=== PATIENT | male | born 1965 | race Caucasian/White ===

== ENCOUNTER 2017-09-27 16:57 | Inpatient (IN) | payer BC ==
[~2017-09-27] VITALS: Ht 170.2 cm; Wt 74.8 kg
[2017-09-27] MEDS ORDERED: [UNRECOGNIZED DRUG - CODE] PO (17:14)
[2017-09-27] MEDS ORDERED: AMLO10TA80 PO (17:14)
[2017-09-27] MEDS ORDERED: ASPI-864 PO (17:14)
[2017-09-27] MEDS ORDERED: CHOL20004 PO (17:14)
[2017-09-27] MEDS ORDERED: DORZ10DR9 OP (17:14)
[2017-09-27] MEDS ORDERED: FURO40TA5 PO (17:14)
[2017-09-27] MEDS ORDERED: BRIM15DR2 EACHEYE (17:14)
[2017-09-27] MEDS ORDERED: GABA-531 PO (17:14)
[2017-09-27 21:09] LABS: BASOPHILS % 0.6 % (0.0-2.0); EOSINOPHILS % 3.2 % (0.0-5.0); LYMPHOCYTES % 15.1 % (20.0-50.0); MEAN CORPUSCULAR HEMOGLOBIN 31.3 pg (28.0-32.0); MEAN CORPUSCULAR VOLUME 93.3 fL (80.0-94.0); MEAN PLATELET VOLUME 10.8 fl (7.4-10.4); MONOCYTES % 12.1 % (2.0-8.0); PLATELET 324 x1000/uL (130-400); RED BLOOD CELL COUNT 2.02 mill/uL (4.7-6.1); RED CELL DISTRIBUTION WIDTH 14.2 % (11.6-14.6)
[2017-09-27 21:11] LABS: INR 1.1; PROTHROMBIN TIME 11.8 sec (9.4-11.6)
[2017-09-27 21:15] LABS: HEMATOCRIT. 18.9 % (42.0-52.0); HEMOGLOBIN. 6.3 g/dL (14.0-18.0)
[2017-09-27 21:23] LABS: CARBON DIOXIDE 17 mEq/L (21-32); CHLORIDE 113 mEq/L (98-107); CREATINE KINASE 571 IU/L (39-308); ETHANOL BLOOD < 10 mg/dL; TROPONIN I 0.02 ng/mL (0.00-0.04)
[2017-09-27 21:53] LABS: CLARITY URINE CLEAR (CLEAR); COLOR URINE YELLOW (YELLOW); KETONES URINE NEGATIVE (NEGATIVE); LEUKOCYTE ESTERASE URINE NEGATIVE (NEGATIVE); NITRITE URINE NEGATIVE (NEGATIVE); OCCULT BLOOD URINE 1+ (NEGATIVE); PH URINE 5.5 (4.5-8.0); PROTEIN URINE 3+ (NEGATIVE); SPECIFIC GRAVITY URINE 1.015 (1.005-1.030); UROBILINOGEN URINE 0.2 E.U./dL (0.2-1.0)
[2017-09-27] MEDS ORDERED: ASPIRIN 81MG TABLET PO ONE (22:00)
[2017-09-27 22:05] LABS: *AMPHETAMINES SCREEN URINE NEGATIVE (NEGATIVE); *BARBITURATES SCREEN URINE NEGATIVE (NEGATIVE); *BENZODIAZEPINES SCREEN URINE NEGATIVE (NEGATIVE); *COCAINE SCREEN URINE NEGATIVE (NEGATIVE); CANNABINOID URINE SCREEN NEGATIVE (NEGATIVE); METHADONE URINE SCREEN NEGATIVE (NEGATIVE); OPIATES URINE SCREEN NEGATIVE (NEGATIVE); PHENCYCLIDINE URINE SCREEN NEGATIVE (NEGATIVE)
[2017-09-27] MEDS ORDERED: CLONIDINE 0.2MG TABLET PO ONE (22:30)
[2017-09-28] VITALS (19 sets, daily range): BP systolic 122–169; BP diastolic 68–93
[2017-09-28] MEDS ORDERED: ONDANSETRON HCL 4MG/2ML VIAL IV PRN (02:00)
[2017-09-28] MEDS ORDERED: DEXTROSE 50% WATER 50ML SYRINGE IV PRN (02:00)
[2017-09-28] MEDS ORDERED: IPRATROPIUM/ALBUTEROL 0.5-3(2.5)MG/3ML NEB INH PRN (02:00)
[2017-09-28] MEDS ORDERED: DIPHENHYDRAMINE 50MG/ML VIAL IV PRN (02:00)
[2017-09-28] MEDS ORDERED: ACETAMINOPHEN 325MG TABLET PO PRN (02:00)
[2017-09-28] MEDS ORDERED: MAGNESIUM/ALUMINUM HYDROXIDE/SIMETHICONE 30ML UDC PO PRN (02:00)
[2017-09-28] MEDS: SODIUM CHLORIDE 0.9% 1,000 ML IV SCH (03:07)
[2017-09-28] MEDS: BLOOD SUGAR DIAGNOSTIC STRIP TEST SCH ×4 (06:19→21:00)
[2017-09-28] MEDS: GABAPENTIN 300MG CAPSULE PO SCH ×3 (06:19→21:57)
[2017-09-28] MEDS: BRIMONIDINE 0.2% OPHTH DROPS 5ML BOTHEYE SCH ×3 (06:19→21:58)
[2017-09-28] MEDS: INSULIN LISPRO 100 UNITS/ML SUBCUT SCH ×4 (07:50→23:16)
[2017-09-28] MEDS: AMLODIPINE 10MG TABLET PO SCH (08:42)
[2017-09-28] MEDS: TIMOLOL MALEATE 0.5% OPHTH DROPS 5ML EACHEYE SCH ×2 (08:43→21:58)
[2017-09-28] MEDS ORDERED: LIDOCAINE HCL 1% 20ML VIAL (Pyxis) INJ ONE (09:52)
[2017-09-28] MEDS ORDERED: SODIUM BICARBONATE 4% (2.4MEQ) 5ML VIAL IV ONE (09:52)
[2017-09-28] MEDS ORDERED: CEFAZOLIN 1000MG PREMIX 50 ML IV ONE ×2 (10:00→10:02)
[2017-09-28] MEDS: INSULIN GLARGINE UD 100 UNITS/ML SYR SUBCUT SCH (10:00)
[2017-09-28] MEDS ORDERED: FENTANYL CITRATE/PF 50MCG/ML 2ML VIAL ONE (10:03)
[2017-09-28] MEDS ORDERED: FENTANYL CITRATE/PF 50MCG/ML 2ML VIAL IV ONE (10:05)
[2017-09-28 17:09] LABS: HEPATITIS B SURFACE ANTIGEN NEGATIVE
[2017-09-28 17:37] LABS: HEPATITIS B CORE AB IGM NEGATIVE
[2017-09-28 17:39] LABS: HEPATITIS A AB IGM NEGATIVE (NEGATIVE)
[2017-09-28 20:16] LABS: BASOPHILS % 0.7 % (0.0-2.0); EOSINOPHILS % 2.8 % (0.0-5.0); HEMATOCRIT. 22.2 % (42.0-52.0); HEMOGLOBIN. 7.5 g/dL (14.0-18.0); LYMPHOCYTES % 13.4 % (20.0-50.0); MEAN CORPUSCULAR HEMOGLOBIN 30.3 pg (28.0-32.0); MEAN CORPUSCULAR VOLUME 89.5 fL (80.0-94.0); MEAN PLATELET VOLUME 10.5 fl (7.4-10.4); MONOCYTES % 12.9 % (2.0-8.0); NEUTROPHILS % 70.2 % (40.0-76.0); PLATELET 300 x1000/uL (130-400); RED BLOOD CELL COUNT 2.48 mill/uL (4.7-6.1); RED CELL DISTRIBUTION WIDTH 14.6 % (11.6-14.6)
[2017-09-29] VITALS: BP 164/77
[2017-09-29 04:00] VITALS: BP 158/80
[2017-09-29] MEDS: GABAPENTIN 300MG CAPSULE PO SCH ×3 (06:49→21:27)
[2017-09-29] MEDS: BRIMONIDINE 0.2% OPHTH DROPS 5ML BOTHEYE SCH ×3 (06:53→21:57)
[2017-09-29 07:49] LABS: BASOPHILS % 0.7 % (0.0-2.0); EOSINOPHILS % 2.8 % (0.0-5.0); LYMPHOCYTES % 18.3 % (20.0-50.0); MEAN CORPUSCULAR HEMOGLOBIN 31.2 pg (28.0-32.0); MEAN CORPUSCULAR VOLUME 89.9 fL (80.0-94.0); MEAN PLATELET VOLUME 10.8 fl (7.4-10.4); MONOCYTES % 14.3 % (2.0-8.0); NEUTROPHILS % 63.9 % (40.0-76.0); PLATELET 252 x1000/uL (130-400); RED BLOOD CELL COUNT 2.19 mill/uL (4.7-6.1); RED CELL DISTRIBUTION WIDTH 14.5 % (11.6-14.6)
[2017-09-29] MEDS: BLOOD SUGAR DIAGNOSTIC STRIP TEST SCH ×4 (07:50→21:48)
[2017-09-29 07:56] LABS: HEMOGLOBIN. 6.8 g/dL (14.0-18.0)
[2017-09-29 07:57] LABS: HEMATOCRIT. 19.7 % (42.0-52.0)
[2017-09-29 08:00] VITALS: BP 148/73
[2017-09-29 08:58] LABS: PHOSPHORUS 4.7 mg/dL (2.5-4.9)
[2017-09-29] MEDS: AMLODIPINE 10MG TABLET PO SCH (10:27)
[2017-09-29] MEDS: INSULIN GLARGINE UD 100 UNITS/ML SYR SUBCUT SCH (10:31)
[2017-09-29] MEDS: TIMOLOL MALEATE 0.5% OPHTH DROPS 5ML EACHEYE SCH ×2 (10:32→21:27)
[2017-09-29] MEDS: INSULIN LISPRO 100 UNITS/ML SUBCUT SCH ×4 (10:38→22:00)
[2017-09-29 12:00] VITALS: BP 145/68
[2017-09-29 12:37] LABS: BASOPHILS % 0.8 % (0.0-2.0); LYMPHOCYTES % 18.9 % (20.0-50.0); MEAN CORPUSCULAR HEMOGLOBIN 30.6 pg (28.0-32.0); MEAN CORPUSCULAR VOLUME 90.5 fL (80.0-94.0); MEAN PLATELET VOLUME 10.6 fl (7.4-10.4); MONOCYTES % 14.3 % (2.0-8.0); PLATELET 261 x1000/uL (130-400); RED BLOOD CELL COUNT 2.28 mill/uL (4.7-6.1); RED CELL DISTRIBUTION WIDTH 14.6 % (11.6-14.6)
[2017-09-29 12:43] LABS: HEMATOCRIT. 20.6 % (42.0-52.0)
[2017-09-29 16:00] VITALS: BP 138/66
[2017-09-29 20:00] VITALS: BP 138/70
[2017-09-30] VITALS (9 sets, daily range): BP systolic 131–196; BP diastolic 52–100
[2017-09-30] MEDS: SODIUM CHLORIDE 0.9% 1,000 ML IV SCH (01:29)
[2017-09-30] MEDS: GABAPENTIN 300MG CAPSULE PO SCH ×3 (06:46→21:43)
[2017-09-30] MEDS: BRIMONIDINE 0.2% OPHTH DROPS 5ML BOTHEYE SCH ×3 (06:47→21:43)
[2017-09-30] MEDS: BLOOD SUGAR DIAGNOSTIC STRIP TEST SCH ×4 (06:52→21:24)
[2017-09-30] MEDS: INSULIN LISPRO 100 UNITS/ML SUBCUT SCH ×4 (07:50→21:45)
[2017-09-30] MEDS: AMLODIPINE 10MG TABLET PO SCH ×2 (09:00→13:39)
[2017-09-30 09:08] LABS: BASOPHILS % 0.7 % (0.0-2.0); EOSINOPHILS % 4.9 % (0.0-5.0); LYMPHOCYTES % 22.9 % (20.0-50.0); MEAN CORPUSCULAR HEMOGLOBIN 30.4 pg (28.0-32.0); MEAN PLATELET VOLUME 10.7 fl (7.4-10.4); MONOCYTES % 13.3 % (2.0-8.0); NEUTROPHILS % 58.2 % (40.0-76.0); PLATELET 265 x1000/uL (130-400); RED BLOOD CELL COUNT 2.29 mill/uL (4.7-6.1); RED CELL DISTRIBUTION WIDTH 14.1 % (11.6-14.6)
[2017-09-30 09:13] LABS: HEMATOCRIT. 20.8 % (42.0-52.0)
[2017-09-30] MEDS: TIMOLOL MALEATE 0.5% OPHTH DROPS 5ML EACHEYE SCH ×2 (09:51→20:57)
[2017-09-30] MEDS: CLONIDINE 0.1MG TABLET PO PRN (11:09)
[2017-09-30] MEDS: INSULIN GLARGINE UD 100 UNITS/ML SYR SUBCUT SCH (12:00)
[2017-09-30] MEDS: GUAIFENESIN 200MG/10ML SUGAR FREE UDC PO PRN (19:28)
[2017-10-01] VITALS: BP 131/72
[2017-10-01 04:00] VITALS: BP 132/63
[2017-10-01] MEDS: GABAPENTIN 300MG CAPSULE PO SCH ×3 (06:12→22:11)
[2017-10-01] MEDS: BRIMONIDINE 0.2% OPHTH DROPS 5ML BOTHEYE SCH ×3 (06:12→22:12)
[2017-10-01] MEDS: BLOOD SUGAR DIAGNOSTIC STRIP TEST SCH ×4 (06:14→21:00)
[2017-10-01 06:26] LABS: BASOPHILS % 0.9 % (0.0-2.0); EOSINOPHILS % 3.9 % (0.0-5.0); HEMOGLOBIN. 8.2 g/dL (14.0-18.0); MEAN CORPUSCULAR HEMOGLOBIN 30.8 pg (28.0-32.0); MEAN CORPUSCULAR VOLUME 90.2 fL (80.0-94.0); MEAN PLATELET VOLUME 10.4 fl (7.4-10.4); MONOCYTES % 11.9 % (2.0-8.0); NEUTROPHILS % 65.3 % (40.0-76.0); PLATELET 278 x1000/uL (130-400); RED BLOOD CELL COUNT 2.66 mill/uL (4.7-6.1); RED CELL DISTRIBUTION WIDTH 14.2 % (11.6-14.6)
[2017-10-01] MEDS: INSULIN LISPRO 100 UNITS/ML SUBCUT SCH ×4 (07:50→21:00)
[2017-10-01 08:00] VITALS: BP 141/74
[2017-10-01] MEDS: TIMOLOL MALEATE 0.5% OPHTH DROPS 5ML EACHEYE SCH ×2 (09:40→22:12)
[2017-10-01] MEDS: INSULIN GLARGINE UD 100 UNITS/ML SYR SUBCUT SCH (09:42)
[2017-10-01] MEDS: AMLODIPINE 10MG TABLET PO SCH (11:09)
[2017-10-01] MEDS: GUAIFENESIN 200MG/10ML SUGAR FREE UDC PO PRN ×2 (11:18→22:11)
[2017-10-01 12:00] VITALS: BP 132/69
[2017-10-01 16:00] VITALS: BP 126/52
[2017-10-01 20:00] VITALS: BP 135/69
[2017-10-02] VITALS: BP 133/69
[2017-10-02 04:00] VITALS: BP 186/84
[2017-10-02 06:21] LABS: BASOPHILS % 0.8 % (0.0-2.0); EOSINOPHILS % 3.6 % (0.0-5.0); HEMATOCRIT. 24.5 % (42.0-52.0); HEMOGLOBIN. 8.2 g/dL (14.0-18.0); LYMPHOCYTES % 20.5 % (20.0-50.0); MEAN CORPUSCULAR HEMOGLOBIN 30.2 pg (28.0-32.0); MEAN PLATELET VOLUME 10.5 fl (7.4-10.4); MONOCYTES % 11.5 % (2.0-8.0); NEUTROPHILS % 63.6 % (40.0-76.0); PLATELET 296 x1000/uL (130-400); RED BLOOD CELL COUNT 2.73 mill/uL (4.7-6.1); RED CELL DISTRIBUTION WIDTH 13.8 % (11.6-14.6)
[2017-10-02] MEDS: GABAPENTIN 300MG CAPSULE PO SCH ×3 (06:53→21:03)
[2017-10-02] MEDS: BLOOD SUGAR DIAGNOSTIC STRIP TEST SCH ×4 (06:54→21:08)
[2017-10-02] MEDS: BRIMONIDINE 0.2% OPHTH DROPS 5ML BOTHEYE SCH ×3 (06:54→21:04)
[2017-10-02 07:36] VITALS: BP 176/94
[2017-10-02 07:53] LABS: PHOSPHORUS 4.5 mg/dL (2.5-4.9)
[2017-10-02] MEDS: FOLIC ACID/VITAMIN B COMP W-C TABLET PO SCH (08:23)
[2017-10-02] MEDS: INSULIN LISPRO 100 UNITS/ML SUBCUT SCH ×4 (08:23→21:07)
[2017-10-02] MEDS: TIMOLOL MALEATE 0.5% OPHTH DROPS 5ML EACHEYE SCH ×2 (08:29→21:04)
[2017-10-02] MEDS ORDERED: HEPARIN SODIUM 1,000 UNIT/1ML VIAL IV SCH (09:00)
[2017-10-02] MEDS: INSULIN GLARGINE UD 100 UNITS/ML SYR SUBCUT SCH (10:23)
[2017-10-02 12:00] VITALS: BP 156/80
[2017-10-02] MEDS ORDERED: AMLODIPINE 10MG TABLET PO SCH ×2 (13:30→14:00)
[2017-10-02] MEDS ORDERED: MECLIZINE 25MG TABLET PO PRN (14:00)
[2017-10-02 20:00] VITALS: BP 121/59
[2017-10-02] MEDS: EPOETIN ALFA 4000UNITS/ML VIAL SUBCUT SCH (21:04)
[2017-10-03] VITALS: BP 116/66
[2017-10-03 04:00] VITALS: BP 143/74
[2017-10-03] MEDS: GABAPENTIN 300MG CAPSULE PO SCH ×3 (06:08→21:09)
[2017-10-03] MEDS: BRIMONIDINE 0.2% OPHTH DROPS 5ML BOTHEYE SCH ×3 (06:08→21:09)
[2017-10-03] MEDS: BLOOD SUGAR DIAGNOSTIC STRIP TEST SCH ×4 (06:37→21:12)
[2017-10-03 06:43] LABS: BASOPHILS % 1.1 % (0.0-2.0); EOSINOPHILS % 3.6 % (0.0-5.0); HEMOGLOBIN. 8.3 g/dL (14.0-18.0); MEAN CORPUSCULAR HEMOGLOBIN 31.1 pg (28.0-32.0); MEAN CORPUSCULAR VOLUME 90.1 fL (80.0-94.0); MEAN PLATELET VOLUME 10.5 fl (7.4-10.4); MONOCYTES % 13.1 % (2.0-8.0); NEUTROPHILS % 61.2 % (40.0-76.0); PLATELET 285 x1000/uL (130-400); RED BLOOD CELL COUNT 2.67 mill/uL (4.7-6.1); RED CELL DISTRIBUTION WIDTH 13.7 % (11.6-14.6)
[2017-10-03] MEDS: LOSARTAN POTASSIUM 25 MG TABLET PO SCH (08:21)
[2017-10-03] MEDS: AMLODIPINE 10MG TABLET PO SCH (08:21)
[2017-10-03] MEDS: FOLIC ACID/VITAMIN B COMP W-C TABLET PO SCH (08:21)
[2017-10-03] MEDS: TIMOLOL MALEATE 0.5% OPHTH DROPS 5ML EACHEYE SCH ×2 (08:22→21:09)
[2017-10-03] MEDS: INSULIN LISPRO 100 UNITS/ML SUBCUT SCH ×4 (08:23→21:12)
[2017-10-03] MEDS ORDERED: SODIUM POLYSTYRENE SULFONATE 15 G/60 ML BOT PO NR (08:30)
[2017-10-03] MEDS: INSULIN GLARGINE UD 100 UNITS/ML SYR SUBCUT SCH (10:10)
[2017-10-03 11:03] VITALS: BP 127/64
[2017-10-03 16:02] VITALS: BP 125/69
[2017-10-03 20:00] VITALS: BP 134/67
[2017-10-04] VITALS: BP 139/75
[2017-10-04 04:00] VITALS: BP 159/82
[2017-10-04] MEDS: BRIMONIDINE 0.2% OPHTH DROPS 5ML BOTHEYE SCH ×3 (06:15→21:12)
[2017-10-04] MEDS: GABAPENTIN 300MG CAPSULE PO SCH ×3 (06:15→21:12)
[2017-10-04] MEDS: BLOOD SUGAR DIAGNOSTIC STRIP TEST SCH ×4 (06:34→21:06)
[2017-10-04 07:00] LABS: BASOPHILS % 0.7 % (0.0-2.0); EOSINOPHILS % 3.7 % (0.0-5.0); HEMATOCRIT. 23.4 % (42.0-52.0); HEMOGLOBIN. 8.1 g/dL (14.0-18.0); LYMPHOCYTES % 24.1 % (20.0-50.0); MEAN CORPUSCULAR HEMOGLOBIN 31.1 pg (28.0-32.0); MEAN CORPUSCULAR VOLUME 90.4 fL (80.0-94.0); MEAN PLATELET VOLUME 10.4 fl (7.4-10.4); MONOCYTES % 12.4 % (2.0-8.0); NEUTROPHILS % 59.1 % (40.0-76.0); PLATELET 271 x1000/uL (130-400); RED BLOOD CELL COUNT 2.59 mill/uL (4.7-6.1)
[2017-10-04 07:28] VITALS: BP 145/80
[2017-10-04] MEDS: FOLIC ACID/VITAMIN B COMP W-C TABLET PO SCH (08:53)
[2017-10-04] MEDS: TIMOLOL MALEATE 0.5% OPHTH DROPS 5ML EACHEYE SCH ×2 (08:56→21:12)
[2017-10-04] MEDS: LOSARTAN POTASSIUM 25 MG TABLET PO SCH (09:00)
[2017-10-04] MEDS: INSULIN LISPRO 100 UNITS/ML SUBCUT SCH ×4 (09:00→21:07)
[2017-10-04] MEDS: AMLODIPINE 10MG TABLET PO SCH (09:00)
[2017-10-04] MEDS: INSULIN GLARGINE UD 100 UNITS/ML SYR SUBCUT SCH (10:42)
[2017-10-04 12:00] VITALS: BP 176/89
[2017-10-04 15:26] VITALS: BP 160/81
[2017-10-04 20:00] VITALS: BP 154/68
[2017-10-04] MEDS: EPOETIN ALFA 4000UNITS/ML VIAL SUBCUT SCH (21:12)
[2017-10-04] MEDS: TEMAZEPAM 15MG CAPSULE PO PRN (22:11)
[2017-10-05] VITALS: BP 136/68
[2017-10-05 04:00] VITALS: BP 147/71
[2017-10-05 04:04] VITALS: BP 167/91
[2017-10-05] MEDS: GABAPENTIN 300MG CAPSULE PO SCH ×3 (05:46→21:37)
[2017-10-05] MEDS: BRIMONIDINE 0.2% OPHTH DROPS 5ML BOTHEYE SCH ×3 (05:47→21:39)
[2017-10-05] MEDS: BLOOD SUGAR DIAGNOSTIC STRIP TEST SCH ×4 (06:52→21:39)
[2017-10-05 07:01] LABS: HEMATOCRIT. 23.8 % (42.0-52.0); HEMOGLOBIN. 8.2 g/dL (14.0-18.0); MEAN CORPUSCULAR HEMOGLOBIN 30.9 pg (28.0-32.0); MEAN CORPUSCULAR VOLUME 89.9 fL (80.0-94.0); MEAN PLATELET VOLUME 10.3 fl (7.4-10.4); PLATELET 273 x1000/uL (130-400); RED BLOOD CELL COUNT 2.65 mill/uL (4.7-6.1); RED CELL DISTRIBUTION WIDTH 13.8 % (11.6-14.6)
[2017-10-05] MEDS: INSULIN LISPRO 100 UNITS/ML SUBCUT SCH ×4 (07:50→21:38)
[2017-10-05 08:00] VITALS: BP 155/80
[2017-10-05 08:16] LABS: PLATELET ESTIMATE NORMAL
[2017-10-05] MEDS: AMLODIPINE 10MG TABLET PO SCH (08:24)
[2017-10-05] MEDS: LOSARTAN POTASSIUM 25 MG TABLET PO SCH (08:24)
[2017-10-05] MEDS: FOLIC ACID/VITAMIN B COMP W-C TABLET PO SCH (08:24)
[2017-10-05] MEDS: TIMOLOL MALEATE 0.5% OPHTH DROPS 5ML EACHEYE SCH ×2 (08:25→21:39)
[2017-10-05] MEDS: INSULIN GLARGINE UD 100 UNITS/ML SYR SUBCUT SCH (10:06)
[2017-10-05 12:00] VITALS: BP 144/79
[2017-10-05 16:21] VITALS: BP 110/58
[2017-10-05] MEDS: TEMAZEPAM 15MG CAPSULE PO PRN (21:37)
[2017-10-06] MEDS: BRIMONIDINE 0.2% OPHTH DROPS 5ML BOTHEYE SCH ×3 (05:43→21:00)
[2017-10-06] MEDS: GABAPENTIN 300MG CAPSULE PO SCH ×3 (05:43→21:00)
[2017-10-06] MEDS: BLOOD SUGAR DIAGNOSTIC STRIP TEST SCH ×4 (06:24→20:48)
[2017-10-06 06:38] LABS: BASOPHILS % 1.1 % (0.0-2.0); EOSINOPHILS % 4.1 % (0.0-5.0); HEMATOCRIT. 23.3 % (42.0-52.0); LYMPHOCYTES % 28.6 % (20.0-50.0); MEAN CORPUSCULAR VOLUME 90.2 fL (80.0-94.0); MEAN PLATELET VOLUME 10.5 fl (7.4-10.4); MONOCYTES % 13.2 % (2.0-8.0); PLATELET 263 x1000/uL (130-400); RED BLOOD CELL COUNT 2.59 mill/uL (4.7-6.1); RED CELL DISTRIBUTION WIDTH 13.9 % (11.6-14.6)
[2017-10-06 08:00] VITALS: BP 129/68
[2017-10-06] MEDS: AMLODIPINE 10MG TABLET PO SCH (08:25)
[2017-10-06] MEDS: TIMOLOL MALEATE 0.5% OPHTH DROPS 5ML EACHEYE SCH ×2 (08:25→21:01)
[2017-10-06] MEDS: FOLIC ACID/VITAMIN B COMP W-C TABLET PO SCH (08:25)
[2017-10-06] MEDS: LOSARTAN POTASSIUM 25 MG TABLET PO SCH (08:25)
[2017-10-06] MEDS: INSULIN LISPRO 100 UNITS/ML SUBCUT SCH ×4 (08:30→20:59)
[2017-10-06] MEDS: INSULIN GLARGINE UD 100 UNITS/ML SYR SUBCUT SCH (10:11)
[2017-10-06 12:00] VITALS: BP 161/61
[2017-10-06 15:51] VITALS: BP 163/78
[2017-10-06 20:00] VITALS: BP 150/81
[2017-10-06] MEDS: EPOETIN ALFA 4000UNITS/ML VIAL SUBCUT SCH (21:34)
[2017-10-07] VITALS: BP 146/73
[2017-10-07 04:00] VITALS: BP 154/88
[2017-10-07 06:04] LABS: BASOPHILS % 1.4 % (0.0-2.0); EOSINOPHILS % 2.2 % (0.0-5.0); HEMATOCRIT. 23.7 % (42.0-52.0); HEMOGLOBIN. 8.1 g/dL (14.0-18.0); LYMPHOCYTES % 18.9 % (20.0-50.0); MEAN CORPUSCULAR HEMOGLOBIN 30.9 pg (28.0-32.0); MEAN CORPUSCULAR VOLUME 90.4 fL (80.0-94.0); MEAN PLATELET VOLUME 10.6 fl (7.4-10.4); MONOCYTES % 13.3 % (2.0-8.0); NEUTROPHILS % 64.2 % (40.0-76.0); PLATELET 275 x1000/uL (130-400); RED BLOOD CELL COUNT 2.62 mill/uL (4.7-6.1); RED CELL DISTRIBUTION WIDTH 14.2 % (11.6-14.6)
[2017-10-07] MEDS: BRIMONIDINE 0.2% OPHTH DROPS 5ML BOTHEYE SCH ×3 (06:26→21:00)
[2017-10-07] MEDS: GABAPENTIN 300MG CAPSULE PO SCH ×3 (06:27→21:00)
[2017-10-07] MEDS: BLOOD SUGAR DIAGNOSTIC STRIP TEST SCH ×4 (06:31→21:04)
[2017-10-07 08:08] VITALS: BP 181/95
[2017-10-07] MEDS: INSULIN LISPRO 100 UNITS/ML SUBCUT SCH ×4 (08:55→21:03)
[2017-10-07] MEDS: FOLIC ACID/VITAMIN B COMP W-C TABLET PO SCH (08:57)
[2017-10-07] MEDS: LOSARTAN POTASSIUM 25 MG TABLET PO SCH (08:57)
[2017-10-07] MEDS: AMLODIPINE 10MG TABLET PO SCH (08:58)
[2017-10-07] MEDS: TIMOLOL MALEATE 0.5% OPHTH DROPS 5ML EACHEYE SCH ×2 (08:59→21:00)
[2017-10-07] MEDS: INSULIN GLARGINE UD 100 UNITS/ML SYR SUBCUT SCH (10:07)
[2017-10-07 12:06] VITALS: BP 148/68
[2017-10-07 16:13] VITALS: BP 142/80
[2017-10-07 20:00] VITALS: BP 150/76
[2017-10-08] VITALS (7 sets, daily range): BP systolic 118–168; BP diastolic 58–80
[2017-10-08] MEDS: BRIMONIDINE 0.2% OPHTH DROPS 5ML BOTHEYE SCH ×3 (05:13→21:16)
[2017-10-08] MEDS: CLONIDINE 0.1MG TABLET PO PRN (05:14)
[2017-10-08] MEDS: GABAPENTIN 300MG CAPSULE PO SCH ×3 (05:14→21:16)
[2017-10-08] MEDS: BLOOD SUGAR DIAGNOSTIC STRIP TEST SCH ×4 (06:25→21:17)
[2017-10-08] MEDS: INSULIN LISPRO 100 UNITS/ML SUBCUT SCH ×4 (06:53→21:00)
[2017-10-08 07:13] LABS: BASOPHILS % 1.3 % (0.0-2.0); EOSINOPHILS % 3.1 % (0.0-5.0); HEMATOCRIT. 22.1 % (42.0-52.0); HEMOGLOBIN. 7.5 g/dL (14.0-18.0); LYMPHOCYTES % 21.6 % (20.0-50.0); MEAN CORPUSCULAR HEMOGLOBIN 31.1 pg (28.0-32.0); MEAN CORPUSCULAR VOLUME 91.4 fL (80.0-94.0); MEAN PLATELET VOLUME 10.4 fl (7.4-10.4); MONOCYTES % 13.2 % (2.0-8.0); NEUTROPHILS % 60.8 % (40.0-76.0); PLATELET 238 x1000/uL (130-400); RED BLOOD CELL COUNT 2.42 mill/uL (4.7-6.1); RED CELL DISTRIBUTION WIDTH 14.1 % (11.6-14.6)
[2017-10-08] MEDS: LOSARTAN POTASSIUM 25 MG TABLET PO SCH (08:30)
[2017-10-08] MEDS: TIMOLOL MALEATE 0.5% OPHTH DROPS 5ML EACHEYE SCH ×2 (08:30→21:16)
[2017-10-08] MEDS: FOLIC ACID/VITAMIN B COMP W-C TABLET PO SCH (08:30)
[2017-10-08] MEDS: AMLODIPINE 10MG TABLET PO SCH (08:31)
[2017-10-08] MEDS: INSULIN GLARGINE UD 100 UNITS/ML SYR SUBCUT SCH (10:10)
[2017-10-08] MEDS ORDERED: SODIUM POLYSTYRENE SULFONATE 15 G/60 ML BOT PO SCH (11:45)
[2017-10-09] VITALS: BP 144/74
[2017-10-09 04:00] VITALS: BP 155/80
[2017-10-09] MEDS: GABAPENTIN 300MG CAPSULE PO SCH ×3 (05:26→21:57)
[2017-10-09] MEDS: BRIMONIDINE 0.2% OPHTH DROPS 5ML BOTHEYE SCH ×3 (05:26→21:58)
[2017-10-09 06:27] LABS: HEMATOCRIT. 23.2 % (42.0-52.0); HEMOGLOBIN. 7.8 g/dL (14.0-18.0); MEAN CORPUSCULAR HEMOGLOBIN 30.9 pg (28.0-32.0); RED BLOOD CELL COUNT 2.52 mill/uL (4.7-6.1); RED CELL DISTRIBUTION WIDTH 14.5 % (11.6-14.6)
[2017-10-09 06:28] LABS: BASOPHILS % 1.4 % (0.0-2.0); EOSINOPHILS % 3.7 % (0.0-5.0); LYMPHOCYTES % 25.4 % (20.0-50.0); MEAN PLATELET VOLUME 10.6 fl (7.4-10.4); MONOCYTES % 12.7 % (2.0-8.0); NEUTROPHILS % 56.8 % (40.0-76.0); PLATELET 239 x1000/uL (130-400)
[2017-10-09] MEDS: BLOOD SUGAR DIAGNOSTIC STRIP TEST SCH ×4 (07:00→20:51)
[2017-10-09 08:00] VITALS: BP 130/74
[2017-10-09] MEDS: INSULIN LISPRO 100 UNITS/ML SUBCUT SCH ×4 (08:40→22:03)
[2017-10-09] MEDS: LOSARTAN POTASSIUM 25 MG TABLET PO SCH (08:41)
[2017-10-09] MEDS: AMLODIPINE 10MG TABLET PO SCH (08:41)
[2017-10-09] MEDS: FOLIC ACID/VITAMIN B COMP W-C TABLET PO SCH (08:41)
[2017-10-09] MEDS: TIMOLOL MALEATE 0.5% OPHTH DROPS 5ML EACHEYE SCH ×2 (08:43→20:52)
[2017-10-09] MEDS: INSULIN GLARGINE UD 100 UNITS/ML SYR SUBCUT SCH (10:11)
[2017-10-09 12:20] VITALS: BP 163/77
[2017-10-09 16:00] VITALS: BP 152/72
[2017-10-09 20:00] VITALS: BP 151/77
[2017-10-09] MEDS: EPOETIN ALFA 10000UNITS/ML VIAL SUBCUT SCH (21:57)
[2017-10-10] VITALS: BP 139/72
[2017-10-10 04:00] VITALS: BP 173/86
[2017-10-10] MEDS: BRIMONIDINE 0.2% OPHTH DROPS 5ML BOTHEYE SCH ×3 (05:55→22:46)
[2017-10-10] MEDS: GABAPENTIN 300MG CAPSULE PO SCH ×3 (05:55→22:46)
[2017-10-10] MEDS: CLONIDINE 0.1MG TABLET PO PRN (06:00)
[2017-10-10] MEDS: BLOOD SUGAR DIAGNOSTIC STRIP TEST SCH ×4 (06:33→20:56)
[2017-10-10] MEDS: INSULIN LISPRO 100 UNITS/ML SUBCUT SCH ×4 (06:59→23:04)
[2017-10-10 08:00] VITALS: BP 138/76
[2017-10-10] MEDS: TIMOLOL MALEATE 0.5% OPHTH DROPS 5ML EACHEYE SCH ×2 (08:19→20:59)
[2017-10-10] MEDS: FOLIC ACID/VITAMIN B COMP W-C TABLET PO SCH (08:20)
[2017-10-10] MEDS: LOSARTAN POTASSIUM 25 MG TABLET PO SCH (08:20)
[2017-10-10] MEDS: AMLODIPINE 10MG TABLET PO SCH (08:24)
[2017-10-10] MEDS: INSULIN GLARGINE UD 100 UNITS/ML SYR SUBCUT SCH (08:27)
[2017-10-10 12:00] VITALS: BP 157/80
[2017-10-10 16:00] VITALS: BP 114/64
[2017-10-10 20:00] VITALS: BP 139/75
[2017-10-11] VITALS: BP 135/70
[2017-10-11 04:00] VITALS: BP 148/93
[2017-10-11] MEDS: GABAPENTIN 300MG CAPSULE PO SCH ×3 (05:38→21:20)
[2017-10-11] MEDS: BRIMONIDINE 0.2% OPHTH DROPS 5ML BOTHEYE SCH ×3 (05:38→21:21)
[2017-10-11 06:50] LABS: BASOPHILS % 1.2 % (0.0-2.0); EOSINOPHILS % 4.6 % (0.0-5.0); HEMATOCRIT. 21.8 % (42.0-52.0); HEMOGLOBIN. 7.3 g/dL (14.0-18.0); LYMPHOCYTES % 26.3 % (20.0-50.0); MEAN CORPUSCULAR HEMOGLOBIN 30.9 pg (28.0-32.0); MEAN CORPUSCULAR VOLUME 92.4 fL (80.0-94.0); MEAN PLATELET VOLUME 10.6 fl (7.4-10.4); MONOCYTES % 13.4 % (2.0-8.0); NEUTROPHILS % 54.5 % (40.0-76.0); PLATELET 208 x1000/uL (130-400); RED BLOOD CELL COUNT 2.36 mill/uL (4.7-6.1); RED CELL DISTRIBUTION WIDTH 14.6 % (11.6-14.6)
[2017-10-11] MEDS: BLOOD SUGAR DIAGNOSTIC STRIP TEST SCH ×4 (06:59→20:27)
[2017-10-11] MEDS: INSULIN LISPRO 100 UNITS/ML SUBCUT SCH ×4 (07:50→21:27)
[2017-10-11 08:00] VITALS: BP 162/81
[2017-10-11] MEDS: FOLIC ACID/VITAMIN B COMP W-C TABLET PO SCH (10:07)
[2017-10-11] MEDS: AMLODIPINE 10MG TABLET PO SCH (10:07)
[2017-10-11] MEDS: LOSARTAN POTASSIUM 25 MG TABLET PO SCH (10:07)
[2017-10-11] MEDS: TIMOLOL MALEATE 0.5% OPHTH DROPS 5ML EACHEYE SCH ×2 (10:08→21:21)
[2017-10-11] MEDS: INSULIN GLARGINE UD 100 UNITS/ML SYR SUBCUT SCH (10:13)
[2017-10-11 10:52] LABS: BASOPHILS % 1.7 % (0.0-2.0); EOSINOPHILS % 4.3 % (0.0-5.0); HEMATOCRIT. 23.2 % (42.0-52.0); HEMOGLOBIN. 7.8 g/dL (14.0-18.0); LYMPHOCYTES % 24.9 % (20.0-50.0); MEAN CORPUSCULAR HEMOGLOBIN 30.6 pg (28.0-32.0); MEAN CORPUSCULAR VOLUME 91.2 fL (80.0-94.0); MEAN PLATELET VOLUME 10.6 fl (7.4-10.4); MONOCYTES % 13.6 % (2.0-8.0); NEUTROPHILS % 55.5 % (40.0-76.0); PLATELET 219 x1000/uL (130-400); RED BLOOD CELL COUNT 2.54 mill/uL (4.7-6.1); RED CELL DISTRIBUTION WIDTH 14.9 % (11.6-14.6)
[2017-10-11 16:00] VITALS: BP 147/71
[2017-10-11 20:00] VITALS: BP 134/70
[2017-10-11] MEDS: EPOETIN ALFA 10000UNITS/ML VIAL SUBCUT SCH (20:30)
[2017-10-12] VITALS: BP 139/66
[2017-10-12 04:00] VITALS: BP 152/79
[2017-10-12] MEDS: BRIMONIDINE 0.2% OPHTH DROPS 5ML BOTHEYE SCH ×3 (05:55→21:08)
[2017-10-12] MEDS: GABAPENTIN 300MG CAPSULE PO SCH ×2 (05:55→13:49)
[2017-10-12] MEDS: BLOOD SUGAR DIAGNOSTIC STRIP TEST SCH ×4 (06:26→20:17)
[2017-10-12] MEDS: INSULIN LISPRO 100 UNITS/ML SUBCUT SCH ×4 (07:50→21:10)
[2017-10-12 08:00] VITALS: BP 121/76
[2017-10-12] MEDS: LOSARTAN POTASSIUM 25 MG TABLET PO SCH (09:28)
[2017-10-12] MEDS: FOLIC ACID/VITAMIN B COMP W-C TABLET PO SCH (09:28)
[2017-10-12] MEDS: AMLODIPINE 10MG TABLET PO SCH (09:29)
[2017-10-12] MEDS: TIMOLOL MALEATE 0.5% OPHTH DROPS 5ML EACHEYE SCH ×2 (09:29→20:13)
[2017-10-12] MEDS: INSULIN GLARGINE UD 100 UNITS/ML SYR SUBCUT SCH (09:33)
[2017-10-12 12:00] VITALS: BP 165/84
[2017-10-12 16:00] VITALS: BP 118/65
[2017-10-12 20:00] VITALS: BP 137/74
[2017-10-12] MEDS: GABAPENTIN 100MG CAPSULE PO SCH (21:08)
[2017-10-13] VITALS: BP 133/70
[2017-10-13 04:00] VITALS: BP 144/78
[2017-10-13] MEDS: BRIMONIDINE 0.2% OPHTH DROPS 5ML BOTHEYE SCH ×3 (06:03→21:10)
[2017-10-13] MEDS: GABAPENTIN 100MG CAPSULE PO SCH ×3 (06:03→21:10)
[2017-10-13] MEDS: BLOOD SUGAR DIAGNOSTIC STRIP TEST SCH ×4 (06:34→21:10)
[2017-10-13 07:17] LABS: BASOPHILS % 1.2 % (0.0-2.0); EOSINOPHILS % 4.4 % (0.0-5.0); HEMATOCRIT. 23.4 % (42.0-52.0); HEMOGLOBIN. 7.9 g/dL (14.0-18.0); LYMPHOCYTES % 24.7 % (20.0-50.0); MEAN CORPUSCULAR VOLUME 92.2 fL (80.0-94.0); MEAN PLATELET VOLUME 10.3 fl (7.4-10.4); MONOCYTES % 13.6 % (2.0-8.0); NEUTROPHILS % 56.1 % (40.0-76.0); PLATELET 209 x1000/uL (130-400); RED BLOOD CELL COUNT 2.54 mill/uL (4.7-6.1); RED CELL DISTRIBUTION WIDTH 15.3 % (11.6-14.6)
[2017-10-13] MEDS: INSULIN LISPRO 100 UNITS/ML SUBCUT SCH ×4 (07:31→21:33)
[2017-10-13 08:00] VITALS: BP 155/83
[2017-10-13] MEDS: LOSARTAN POTASSIUM 25 MG TABLET PO SCH (09:00)
[2017-10-13] MEDS: AMLODIPINE 10MG TABLET PO SCH (09:00)
[2017-10-13] MEDS: INSULIN GLARGINE UD 100 UNITS/ML SYR SUBCUT SCH (09:41)
[2017-10-13] MEDS: FOLIC ACID/VITAMIN B COMP W-C TABLET PO SCH (09:41)
[2017-10-13] MEDS: TIMOLOL MALEATE 0.5% OPHTH DROPS 5ML EACHEYE SCH ×2 (09:41→20:55)
[2017-10-13 16:00] VITALS: BP 168/82
[2017-10-13 20:00] VITALS: BP 175/83
[2017-10-13] MEDS: CLONIDINE 0.1MG TABLET PO PRN (20:54)
[2017-10-13] MEDS: EPOETIN ALFA 10000UNITS/ML VIAL SUBCUT SCH (20:54)
[2017-10-14] VITALS: BP 139/69
[2017-10-14 04:00] VITALS: BP 158/75
[2017-10-14] MEDS: BLOOD SUGAR DIAGNOSTIC STRIP TEST SCH ×4 (06:00→21:00)
[2017-10-14] MEDS: BRIMONIDINE 0.2% OPHTH DROPS 5ML BOTHEYE SCH ×3 (06:13→22:03)
[2017-10-14] MEDS: GABAPENTIN 100MG CAPSULE PO SCH ×3 (06:13→22:03)
[2017-10-14 06:29] LABS: BASOPHILS % 1.4 % (0.0-2.0); EOSINOPHILS % 3.6 % (0.0-5.0); HEMATOCRIT. 23.2 % (42.0-52.0); HEMOGLOBIN. 7.9 g/dL (14.0-18.0); LYMPHOCYTES % 20.1 % (20.0-50.0); MEAN CORPUSCULAR HEMOGLOBIN 31.5 pg (28.0-32.0); MEAN CORPUSCULAR VOLUME 92.1 fL (80.0-94.0); MEAN PLATELET VOLUME 10.8 fl (7.4-10.4); MONOCYTES % 11.9 % (2.0-8.0); PLATELET 216 x1000/uL (130-400); RED BLOOD CELL COUNT 2.52 mill/uL (4.7-6.1); RED CELL DISTRIBUTION WIDTH 15.1 % (11.6-14.6)
[2017-10-14 08:00] VITALS: BP 165/86
[2017-10-14] MEDS: TIMOLOL MALEATE 0.5% OPHTH DROPS 5ML EACHEYE SCH ×2 (09:00→22:03)
[2017-10-14] MEDS: FOLIC ACID/VITAMIN B COMP W-C TABLET PO SCH (10:15)
[2017-10-14] MEDS: INSULIN LISPRO 100 UNITS/ML SUBCUT SCH ×4 (10:20→22:18)
[2017-10-14] MEDS: AMLODIPINE 10MG TABLET PO SCH (10:24)
[2017-10-14] MEDS: LOSARTAN POTASSIUM 25 MG TABLET PO SCH (10:24)
[2017-10-14] MEDS: INSULIN GLARGINE UD 100 UNITS/ML SYR SUBCUT SCH (10:28)
[2017-10-14 12:00] VITALS: BP 113/62
[2017-10-14 16:00] VITALS: BP 132/70
[2017-10-14 20:00] VITALS: BP 155/76
[2017-10-15] VITALS: BP 122/66
[2017-10-15 04:00] VITALS: BP 149/79
[2017-10-15 05:36] LABS: BASOPHILS % 1.4 % (0.0-2.0); EOSINOPHILS % 5.9 % (0.0-5.0); HEMOGLOBIN. 7.7 g/dL (14.0-18.0); LYMPHOCYTES % 29.3 % (20.0-50.0); MEAN CORPUSCULAR HEMOGLOBIN 31.1 pg (28.0-32.0); MEAN CORPUSCULAR VOLUME 93.2 fL (80.0-94.0); MEAN PLATELET VOLUME 10.8 fl (7.4-10.4); MONOCYTES % 14.7 % (2.0-8.0); NEUTROPHILS % 48.7 % (40.0-76.0); PLATELET 223 x1000/uL (130-400); RED BLOOD CELL COUNT 2.46 mill/uL (4.7-6.1); RED CELL DISTRIBUTION WIDTH 15.6 % (11.6-14.6)
[2017-10-15] MEDS: BRIMONIDINE 0.2% OPHTH DROPS 5ML BOTHEYE SCH ×3 (07:05→23:17)
[2017-10-15] MEDS: GABAPENTIN 100MG CAPSULE PO SCH ×3 (07:05→22:07)
[2017-10-15] MEDS: BLOOD SUGAR DIAGNOSTIC STRIP TEST SCH ×4 (07:07→22:00)
[2017-10-15] MEDS: INSULIN LISPRO 100 UNITS/ML SUBCUT SCH ×4 (07:50→22:00)
[2017-10-15 08:00] VITALS: BP 146/74
[2017-10-15] MEDS: LOSARTAN POTASSIUM 25 MG TABLET PO SCH (09:19)
[2017-10-15] MEDS: AMLODIPINE 10MG TABLET PO SCH (09:19)
[2017-10-15] MEDS: FOLIC ACID/VITAMIN B COMP W-C TABLET PO SCH (09:19)
[2017-10-15] MEDS: TIMOLOL MALEATE 0.5% OPHTH DROPS 5ML EACHEYE SCH ×2 (09:20→22:07)
[2017-10-15] MEDS: INSULIN GLARGINE UD 100 UNITS/ML SYR SUBCUT SCH (10:20)
[2017-10-15 12:00] VITALS: BP 152/75
[2017-10-15 16:00] VITALS: BP 142/69
[2017-10-15 20:00] VITALS: BP 136/72
[2017-10-16] VITALS: BP 106/87
[2017-10-16 04:00] VITALS: BP 145/86
[2017-10-16 06:46] LABS: BASOPHILS % 1.4 % (0.0-2.0); EOSINOPHILS % 4.6 % (0.0-5.0); HEMOGLOBIN. 8.1 g/dL (14.0-18.0); LYMPHOCYTES % 21.1 % (20.0-50.0); MEAN CORPUSCULAR HEMOGLOBIN 31.6 pg (28.0-32.0); MEAN CORPUSCULAR VOLUME 92.8 fL (80.0-94.0); MEAN PLATELET VOLUME 10.9 fl (7.4-10.4); MONOCYTES % 11.7 % (2.0-8.0); NEUTROPHILS % 61.2 % (40.0-76.0); PLATELET 227 x1000/uL (130-400); RED BLOOD CELL COUNT 2.58 mill/uL (4.7-6.1); RED CELL DISTRIBUTION WIDTH 15.6 % (11.6-14.6)
[2017-10-16] MEDS: BRIMONIDINE 0.2% OPHTH DROPS 5ML BOTHEYE SCH (07:00)
[2017-10-16] MEDS: BLOOD SUGAR DIAGNOSTIC STRIP TEST SCH ×2 (07:20→12:20)
[2017-10-16] MEDS: INSULIN LISPRO 100 UNITS/ML SUBCUT SCH ×2 (07:50→13:58)
[2017-10-16 08:00] VITALS: BP 173/98
[2017-10-16] MEDS: LOSARTAN POTASSIUM 25 MG TABLET PO SCH (10:01)
[2017-10-16] MEDS: FOLIC ACID/VITAMIN B COMP W-C TABLET PO SCH (10:01)
[2017-10-16] MEDS: AMLODIPINE 10MG TABLET PO SCH (10:03)
[2017-10-16] MEDS: TIMOLOL MALEATE 0.5% OPHTH DROPS 5ML EACHEYE SCH (10:06)
[2017-10-16] MEDS: INSULIN GLARGINE UD 100 UNITS/ML SYR SUBCUT SCH (11:57)
[2017-10-16 12:00] VITALS: BP 162/77
[2017-10-16 13:25] VITALS: BP 162/77
== END 2017-10-16 15:26 | disposition home or self-care (01) | DRG 640 ==
LOC: ER 17:32 → 6WST 23:54 → EDBEDREQTM 23:56 → EDBEDREQ 23:56 → UNDODISIN 10-09 12:16 → 6EST 10-09 12:29
PROVIDERS: ADMIT Internal Medicine; ATTEND Internal Medicine
PROC: 30233N1 Transfusion of Nonautologous Red Blood Cells into Peripheral Vein, Percutaneous Approach (ICD-10-PCS; principal; 2017-09-28)
PROC: 02H633Z Insertion of Infusion Device into Right Atrium, Percutaneous Approach (ICD-10-PCS; 2017-09-28)
PROC: B2141ZZ Fluoroscopy of Right Heart using Low Osmolar Contrast (ICD-10-PCS; 2017-09-28)
PROC: 5A1D70Z Performance of Urinary Filtration, Intermittent, Less than 6 Hours Per Day (ICD-10-PCS; 2017-09-28)
PROC: 5A1D70Z Performance of Urinary Filtration, Intermittent, Less than 6 Hours Per Day (ICD-10-PCS; 2017-09-30)
PROC: 5A1D70Z Performance of Urinary Filtration, Intermittent, Less than 6 Hours Per Day (ICD-10-PCS; 2017-10-02)
PROC: 5A1D70Z Performance of Urinary Filtration, Intermittent, Less than 6 Hours Per Day (ICD-10-PCS; 2017-10-04)
PROC: 5A1D70Z Performance of Urinary Filtration, Intermittent, Less than 6 Hours Per Day (ICD-10-PCS; 2017-10-06)
PROC: 5A1D70Z Performance of Urinary Filtration, Intermittent, Less than 6 Hours Per Day (ICD-10-PCS; 2017-10-09)
PROC: 5A1D70Z Performance of Urinary Filtration, Intermittent, Less than 6 Hours Per Day (ICD-10-PCS; 2017-10-11)
PROC: 5A1D70Z Performance of Urinary Filtration, Intermittent, Less than 6 Hours Per Day (ICD-10-PCS; 2017-10-13)
PROC: 5A1D70Z Performance of Urinary Filtration, Intermittent, Less than 6 Hours Per Day (ICD-10-PCS; 2017-10-16)
DX: E87.5 Hyperkalemia (principal); N18.6 End stage renal disease; E43 Unspecified severe protein-calorie malnutrition; J81.1 Chronic pulmonary edema; E11.22 Type 2 diabetes mellitus with diabetic chronic kidney disease; E11.40 Type 2 diabetes mellitus with diabetic neuropathy, unspecified; I12.0 Hypertensive chronic kidney disease with stage 5 chronic kidney disease or end stage renal disease; E87.2 Acidosis; H40.9 Unspecified glaucoma; Z60.2 Problems related to living alone; D64.9 Anemia, unspecified; Z83.3 Family history of diabetes mellitus; Z79.899 Other long term (current) drug therapy; Z68.25 Body mass index [BMI] 25.0-25.9, adult
CPT/HCPCS: 36415; 36558; 70450; 71045; 76700; 76937; 77001; 80048; 80051; 80053; 80061; 80305; 81001; 82550; 82575; 82962; 83036; 83721; 83735; 83880; 84100; 84132; 84156; 84443; 84484; 85025; 85610; 86705; 86709; 86803; 86850; 86900; 86920; 87340; 93005; 97110; 97112; 97116; 97163; 97166; 99285; C1750; C1769; G0482; J0690; J0885; J1642; J1644; J1815; J3010; J3490; J7030; J7040; J7050; J7620; P9016